=== PATIENT | male | born 2000 | race Two or more races ===

== ENCOUNTER 2024-12-04 18:57 | Emergency (ER) | payer MEDICAID, SELFPAY ==
[2024-12-04 19:31] VITALS: BP 130/75; PULSE 90; RESP 18; TEMP 36.6; O2SAT 96
[2024-12-04 19:32] VITALS: BMI 23.7
--- NOTE | 2024-12-04 19:55 | XR_ITS ---
Examination: Testicular sonography complete Technique: Grayscale sonographic images testes, assessment arterial inflow venous outflow Doppler spectral analysis carful analysis Exam date and time: December 04, 2024 2011 hrs. Indications: Onset left testicular pain beginning 3 days ago Findings: Right testis 5.3 cm epididymis 1.2 cm Arterial flow testicle. No testicular mass Left testis 5.2 cm epididymis 1.5 cm Arterial flow testicle. No testicular mass Mild right moderate left hydrocele Impression: No testicular torsion or testicular mass Mild right moderate left hydrocele
[2024-12-04 20:08] LABS: Collection Type, Urine Clean Catch
[2024-12-04 20:22] LABS: Bilirubin,Urine Negative (Negative); Blood,Urine Negative (Negative); Clarity,Urine Clear (Clear/Hazy); Color,Urine Yellow (Lt Yel-Yel); Culture Indicated,Urine Not Indicated; Glucose, Urine Negative (Negative); Ketones,Urine Negative (Negative); Leukocyte Esterase,Urine Negative (Negative); Nitrite,Urine Negative (Negative); Protein,Urine Trace (Neg - Trace); RBC,Urine 3 /hpf (0-3); Specific Gravity,Urine 1.026 (1.001-1.035); Squamous Epithelial Cell,Urine < 1 /hpf (0-5); Urobilinogen,Urine Negative mg/dL (0.0-1.0); WBC,Urine 1 /hpf (0-5)
[2024-12-04 20:45] LABS: Basophils % (Auto) 0 % (0-2.5); Eosinophils # (Auto) 0.1 Thou/mm3 (0.0-0.5); Eosinophils % (Auto) 2 % (0-10); Hematocrit 44.8 % (41.0-53.0); Hemoglobin 14.8 g/dL (13.5-16.0); Immature Granulocytes % (Auto) 0 % (0-0); Immature Granulocytes Auto 0.02 Thou/mm3 (0.00-0.00); Lymphocytes % (Auto) 27 % (10-50); Mean Corpuscular Volume 91 fL (80-100); Monocytes # (Auto) 0.7 Thou/mm3 (0.0-0.8); Monocytes % (Auto) 9 % (0-12); Neutrophils # (Auto) 4.5 Thou/mm3 (1.8-7.7); Neutrophils % (Auto) 62 % (37-80); Nucleated Red Blood Cell % 0 /100 WBC (0); Platelet Count 235 Thou/mm3 (140-440); RDW Standard Deviation 42.2 fL (35.1-43.9); Red Blood Count 4.94 Miln/mm3 (4.50-5.90); White Blood Count 7.3 Thou/mm3 (3.8-10.6)
[2024-12-04 21:09] LABS: Alanine Aminotransferase 16 U/L (10-49); Albumin, Serum 4.7 gm/dL (3.5-5.0); Albumin/Globulin Ratio 1.7 (1.2-2.2); Alkaline Phosphatase 102 U/L (46-116); Anion Gap 10 (7-16); Aspartate Amino Transferase 25 U/L (0-34); BUN/Creatinine Ratio 11 Ratio (12-20); Bilirubin,Total 0.6 mg/dL (0.3-1.2); Blood Urea Nitrogen 12 mg/dL (9-23); Calcium 10.1 mg/dL (8.3-10.6); Calcium (Corrected) 10.1 mg/dL (8.5-10.1); Carbon Dioxide 28.2 mMol/L (20.0-31.0); Chloride 102 mMol/L (98-107); Creatinine (Component) 1.1 mg/dL (0.6-1.3); Estimated Creatinine Clearance 110.3 mL/min (>60); Globulin 2.7 gm/dL (2.3-3.5); Glucose 103 mg/dL (74-106); Osmolality,Calculated 279 (275-295); Potassium 3.8 mMol/L (3.4-5.1); Sodium 140 mMol/L (136-145); Total Protein 7.4 gm/dL (5.7-8.2); eGFR > 60 See Note
[2024-12-04 21:26] LABS: Syphilis Nonreactive (Nonreactive)
[2024-12-04 22:07] LABS: HIV (1&2) Antibody Rapid Non-Reactive
[2024-12-04 22:25] VITALS: RESP 18
--- NOTE | 2024-12-05 01:45 | EDNOTE_ITS ---
ED Male Genitalurinary RME/HPI General Chief complaint: Urogenital-Male Stated complaint: Frequent urination with groin pain Time Seen by Provider: 12/04/24 19:49 Arrival date/time: 12/04/24 18:57 24M with no significant PMH presents to ED with several days of dysuria and groin pain. Patient is not concerned about STDs, but wants to be tested anyway. Patient denies rash. Limitations: no limitations Related Data Previous Rx's ?Medication ?Instructions ?Recorded ondansetron 4 mg disintegrating 4 mg PO Q8H PRN nausea and 08/06/23 tablet vomiting #10 tabs Allergies Allergy/AdvReac Type Severity Reaction Status Date / Time No Known Allergies Allergy Verified 12/04/24 19:00 Review of Systems Review of Systems Systems Reviewed: All systems reviewed, normal except as documented Constitutional Constitutional: Reports system reviewed and no additional complaints, except as documented, Denies fever(s) and Denies headache(s) ENT Ears, Nose, Mouth, and Throat: Denies disequilibrium and Denies headache(s) Cardiovascular Cardiovascular: Reports system reviewed and no additional complaints, except as documented, Denies chest pain and Denies dyspnea Respiratory Respiratory: Reports system reviewed and no additional complaints, except as documented, Denies cough and Denies dyspnea Gastrointestinal Gastrointestinal: Reports system reviewed and no additional complaints, except as documented, Denies abdominal pain, Denies nausea and Denies vomiting Genitourinary Genitourinary: Reports as per HPI, Reports difficulty urinating, Reports dysuria and Reports genital pain Neurologic Neurologic: Reports system reviewed and no additional complaints, except as documented, Denies confusion, Denies disequilibrium and Denies headache(s) Psychiatric Psychiatric: Denies confusion Past Medical History Social History SMOKING STATUS: Never smoker ED Exam General Limitations: Present no limitations General appearance: Present alert and in no apparent distress Head Head exam: Present atraumatic Eye Eye exam: Present normal appearance, PERRL and EOMI ENT ENT exam: Present normal exam, normal oropharynx and mucous membranes moist Neck Neck exam: Present normal inspection, full ROM and trachea midline Chest Chest inspection: Present normal inspection and symmetric chest wall rise Respiratory Respiratory exam: Present normal lung sounds bilaterally Cardiovascular Cardiovascular exam: Present regular rate, normal rhythm and normal heart sounds Abdominal Exam Abdominal exam: Present soft and normal bowel sounds Extremities Exam Extremities exam: Present normal inspection and full ROM Back Exam Back exam: Present normal inspection and full ROM Neurological Exam Neurological exam: Present alert, oriented X3 and CN II-XII intact Psychiatric Psychiatric exam: Present normal affect and normal mood Skin Skin exam: Present warm, dry, intact and normal color Course Quality Measures none Orders Category Date Time Status US testicular Stat Exams 12/04/24 19:55 Completed CBC Stat Lab 12/04/24 20:28 Completed CMP [Comprehensive Metabolic Panel] Stat Lab 12/04/24 20:28 Completed Chlamydia/GC/TV - PCR Stat Lab 12/04/24 20:00 Received HIV (1&2) Antibody Rapid Stat Lab 12/04/24 20:28 Completed Syphilis Stat Lab 12/04/24 20:28 Completed Urinalysis, C/S if Indicated Stat Lab 12/04/24 20:00 Completed Vital Signs Vital signs: Vital Signs Temperature 98 F 12/04/24 19:31 Pulse Rate 90 12/04/24 19:31 Respiratory Rate 18 12/04/24 19:31 Blood Pressure 130/75 12/04/24 19:31 Pulse Oximetry (%) 96 12/04/24 19:31 Oxygen Delivery Method Room Air 12/04/24 19:31 O2 at 96% on RA and WNLs Urogenital - Male MDM Narrative MDM Narrative:: 24M with no significant PMH presents to ED with several days of dysuria and groin pain. Patient is not concerned about STDs, but wants to be tested anyway. Patient denies rash. Physical exam reveals no ab tenderness. Patient declines genital exam. Patient is afebrile, calm, and alert. No leukocytosis. CMP unremarkable. HIV, syphillis neg. UA clean. GC pending at time of DC. Patient does not want to be treated empirically. US shows mild hydroceles. Patient data External records reviewed:: [facility] previous records Clinical information provided by:: patient Social determinants that could affect healthcare access:: none Patient has the following chronic illnesses:: none How is presenting disease/condition affected by chronic disease/condition?: no chronic disease Evaluation data The following diagnostics were reviewed and interpreted by me:: lab results Lab and/or radiology exams considered but not ordered:: ordered Interpretation Summary: above Medications / Prescriptions Medications or Prescriptions considered but not ordered:: not ordered Medication administrations:: n/a Consultations Consultation(s) initiated? (list below): No Diagnosis Urogenital Male Differential Diagnosis: urinary tract infection, priapism, urethritis, epididymitis, genital herpes simplex, prostatitis, acute retention of urine, inguinal hernia and other (dysuria and concern about STD) Most likely diagnosis given after review of the tests above:: dysuria and concern about STD Admission Indicated Admission indicated?: not indicated Admission Request Was there a request for admission?: No Disposition Plan Disposition Plan: Discharge Discharge Attestation Discharge Attestation: The patient and all family members were given an opportunity to ask questions and understood the discharge instructions. Discharge instructions specifically effects, indications for sooner follow up or return to the emergency department, and the expected course of current diagnosis. Patient condition: Stable Discharge Plan Plan Patient Disposition: HOME (Self Care) Disposition Comment: Stable Prescriptions/Referrals Prescriptions/Med Rec: No Action ondansetron 4 mg tablet,disintegrating 4 mg PO Q8H PRN (Reason: nausea and vomiting) Qty: 10 0RF Referrals: No Primary/Family,Physician [Primary Care Provider] - In 1 week Problem List Clinical Impression: Dysuria, Concern about STD in male without diagnosis Patient/Caregiver Discharge Instructions Education Materials: ED Dysuria, Uncertain Cause (Adult) Additional Instructions: Please follow-up with PCP within 24-48 hours and return immediately if symptoms worsen. Print Language: Serbian Stand Alone Forms: Patient Portal Info Letter SELVIN/GRAEME Supervising Physician SELVIN/GRAEME Supervising Physician: Dr. Adams
[2024-12-05 09:33] LABS: Chlamydia trachomatis PCR Negative (Not Detect); Neisseria Gonorrhoeae DNA PCR Negative (Not Detect); Trichomonas Negative (Negative)
== END 2024-12-04 22:26 | disposition home or self-care (01) ==
PROVIDERS: Physician Assistant; Emergency Provider Emergency Medicine
DX: R30.0 Dysuria (principal); Z20.2 Contact with and (suspected) exposure to infections with a predominantly sexual mode of transmission; R10.30 Lower abdominal pain, unspecified; N43.3 Hydrocele, unspecified
CPT/HCPCS: 36415; 76870; 80053; 81001; 85025; 86703; 86780; 87491; 87591; 87661; 99284

== ENCOUNTER 2025-08-22 22:22 | Emergency (ER) | payer MEDICAID, SELFPAY ==
[2025-08-22 22:23] VITALS: BMI 22.9
[2025-08-22 22:51] VITALS: BP 116/76; PULSE 74; RESP 18; TEMP 37.2; O2SAT 99
--- NOTE | 2025-08-22 23:00 | EDNOTE_ITS ---
ED Back Injury Pain RME/HPI General Chief Complaint: Back Pain/Injury Stated Complaint: LOWER BACK PAIN Time Seen by Provider: 08/22/25 22:54 Source: patient Arrival date/time: 08/22/25 22:22 Mode of arrival: ambulatory Limitations: no limitations RME / HPI RME / HPI Narrative: This patient is an otherwise healthy 24-year-old male who arrives to the ED today for evaluation of back pain concerns for the past 3 days. Patient thinks he may have strained his back while weightlifting. Patient states the pain is in his lower thoracic region bilaterally. Patient states is difficult to bend over or even rotate. Patient states it is disturbing his sleep at night. Patient denies any fever nausea vomiting. Patient denies any history of low back pain concerns. Related Data Previous Rx's ?Medication ?Instructions ?Recorded ondansetron 4 mg disintegrating 4 mg PO Q8H PRN nausea and 08/06/23 tablet vomiting #10 tabs hydrocodone 10 mg-acetaminophen 1 tab PO Q8H PRN pain #12 tabs 08/22/25 325 mg tablet ibuprofen 800 mg tablet (IBU) 800 mg PO Q8H PRN pain # 20 tabs 08/22/25 Allergies Allergy/AdvReac Type Severity Reaction Status Date / Time No Known Allergies Allergy Verified 08/22/25 22:22 Review of Systems Review of Systems Systems Reviewed: All systems reviewed, normal except as documented Past Medical History Social History SMOKING STATUS: Current some day smoker ED Exam General Limitations: Present no limitations General appearance: Present alert and in distress (Moderate distress due to lower back pain concerns.) Head Head exam: Present atraumatic Eye Eye exam: Present normal appearance, PERRL and EOMI ENT ENT exam: Present normal exam, normal oropharynx and mucous membranes moist Neck Neck exam: Present normal inspection, full ROM and trachea midline Chest Chest inspection: Present normal inspection and symmetric chest wall rise Respiratory Respiratory exam: Present normal lung sounds bilaterally Cardiovascular Cardiovascular exam: Present regular rate, normal rhythm and normal heart sounds Abdominal Exam Abdominal exam: Present soft and normal bowel sounds Extremities Exam Extremities exam: Present normal inspection and full ROM Back Exam Back exam: Present other (Diffuse bilateral lower thoracic tenderness palpation throughout with moderate hypertonicity appreciated. Significant reduced range of motion throughout. Patient denies any saddle paresthesia. Bilateral distal nerve bilateral distal neurovascular intact.) Neurological Exam Neurological exam: Present alert, oriented X3 and CN II-XII intact Psychiatric Psychiatric exam: Present normal affect and normal mood Skin Skin exam: Present warm, dry, intact and normal color Course Quality Measures none Orders Category Date Time Status HYDROcodone/APAP 10/325 [Henry 10/325] Med 08/22/25 22:59 Once 1 tab PO X1 ONE Ketorolac Inj [Toradol Inj] Med 08/22/25 22:59 Once 30 mg IM X1 ONE As noted above Vital Signs Vital signs: Vital Signs Temperature 99 F 08/22/25 22:51 Pulse Rate 74 08/22/25 22:51 Respiratory Rate 18 08/22/25 22:51 Blood Pressure 116/76 08/22/25 22:51 Pulse Oximetry (%) 99 08/22/25 22:51 Oxygen Delivery Method Room Air 08/22/25 22:51 As noted above Back Pain / Injury MDM Narrative MDM Narrative:: Advised the patient that he is suffering from a low back strain and spasm. Advised utilize medication as needed for symptomatic relief as well as ice therapy. Patient should abstain from any weight training or exercise program until this back situation has resolved. Patient data External records reviewed:: [facility] previous records Clinical information provided by:: patient Social determinants that could affect healthcare access:: none Patient has the following chronic illnesses:: None How is presenting disease/condition affected by chronic disease/condition?: no chronic disease Evaluation data The following diagnostics were reviewed and interpreted by me:: other (specify) (None) Lab and/or radiology exams considered but not ordered:: None Interpretation Summary: None Medications / Prescriptions Medications or Prescriptions considered but not ordered:: None Medication administrations:: Medication Administration History Hydrocodone Bitart/Acetaminophen (Hydrocodone/Apap 10/325 Tab) 1 tab PO X1 ONE Stop: 08/22/25 23:00 Ketorolac Tromethamine (Ketorolac Inj 30 Mg/Ml Vial) 30 mg IM X1 ONE Stop: 08/22/25 23:00 As noted above Consultations Consultation(s) initiated? (list below): No Diagnosis Differential diagnosis back pain/injury: lumbar radiculopathy, strain of lumbar region and thoracic back pain Most likely diagnosis given after review of the tests above:: Low back strain Admission Indicated Admission indicated?: not indicated Explain why admission is indicated or not indicated:: Unwarranted Admission Request Was there a request for admission?: No Disposition Plan Disposition Plan: Discharge Discharge Attestation Discharge Attestation: The patient and all family members were given an opportunity to ask questions and understood the discharge instructions. Discharge instructions specifically effects, indications for sooner follow up or return to the emergency department, and the expected course of current diagnosis. Patient condition: Stable Discharge Plan Plan Patient Disposition: HOME (Self Care) Prescriptions/Referrals Prescriptions/Med Rec: New ibuprofen [IBU] 800 mg tablet 800 mg PO Q8H PRN (Reason: pain) Qty: 20 0RF hydrocodone-acetaminophen 10-325 mg tablet 1 tab PO Q8H MDD 3 tabs PRN (Reason: pain) Qty: 12 0RF No Action ondansetron 4 mg tablet,disintegrating 4 mg PO Q8H PRN (Reason: nausea and vomiting) Qty: 10 0RF Problem List Clinical Impression: Low back strain Patient/Caregiver Discharge Instructions Education Materials: Understanding Lumbosacral Strain Additional Instructions: Advised pain medication as needed as well as ice therapy. Patient is utilize ice therapy on a schedule of 20 minutes on 20 minutes off for 3 cycles. Wait an hour and patient can repeat. Print Language: Serbian Stand Alone Forms: [employer] Award Info., Patient Portal Info Letter
[2025-08-22] MEDS: KETOROLAC INJ 30 MG/ML VIAL IM (23:15)
== END 2025-08-22 23:24 | disposition home or self-care (01) ==
LOC: SERX 23:23
PROVIDERS: Emergency Provider Emergency Medicine; PCP Nurse Practitioner Family
DX: S39.012A Strain of muscle, fascia and tendon of lower back, initial encounter (principal); X50.0XXA Overexertion from strenuous movement or load, initial encounter; Y93.B3 Activity, free weights
CPT/HCPCS: 96372; 99282; J1885; A9270